=== PATIENT | male | born 1995 | race Caucasian/White ===

== ENCOUNTER 2017-11-22 02:26 | Inpatient (IN) | payer SELFPAY ==
[2017-11-22 02:45] LABS: BASO # 0.1 x10^3/uL (0.0-0.2); BASO % 0 % (0-3); EOS % 0 % (0-3); HEMATOCRIT 49.8 % (39.0-53.0); HEMOGLOBIN 17.3 g/dL (13.0-17.5); LYMPH # 1.1 x10^3/uL (1.0-4.8); LYMPH % 6 % (24-48); MEAN CORPUSCULAR HEMOGLOBIN 31 pg (25-35); MEAN CORPUSCULAR HGB CONC 35 g/dL (31-37); MEAN CORPUSCULAR VOLUME 89 fL (79-100); MONO % 17 % (0-9); NEUT % 77 % (31-73); PLATELET COUNT 196 x10^3/uL (140-400); RED BLOOD COUNT 5.59 x10^6/uL (4.30-5.70); RED CELL DISTRIBUTION WIDTH 13.9 % (11.5-14.5); WHITE BLOOD COUNT 18.2 x10^3/uL (4.0-11.0)
[2017-11-22 02:47] LABS: ADD MAN DIFF? YES
[2017-11-22] MEDS: IV NORMAL SALINE 1000ML BAG 1,000 ML IV ×6 (02:51→19:52)
[2017-11-22 02:52] LABS: ANION GAP 18 (6-14); BLOOD UREA NITROGEN 25 mg/dL (8-26); BUN/CREATININE RATIO 14 (6-20); CARBON DIOXIDE 25 mmol/L (21-32); CHLORIDE 94 mmol/L (98-107); CREATININE 1.8 mg/dL (0.7-1.3); GFR 47.4; GLUCOSE 127 mg/dL (70-99); POTASSIUM 3.5 mmol/L (3.5-5.1); SODIUM 137 mmol/L (136-145)
[2017-11-22 02:59] LABS: ALBUMIN 5.2 g/dL (3.4-5.0); ALBUMIN/GLOBULIN RATIO 1.2 (1.0-1.7); ALK PHOS 96 U/L (46-116); ALT (SGPT) 41 U/L (16-63); AST (SGOT) 76 U/L (15-37); TOTAL PROTEIN 9.4 g/dL (6.4-8.2)
[2017-11-22 03:08] LABS: SALIC 5.5 mg/dL (2.8-20.0)
[2017-11-22 03:09] LABS: ACETAMIN < 2 mcg/ml (10-30); ETHANOL < 10 mg/dL (0-10)
[2017-11-22 04:06] LABS: % ATYL 1 % (0-0); % BANDS 3 % (0-9); % LYMPHS 8 % (24-48); % MONOS 19 % (0-10); % SEGS 69 % (35-66); PLT ESTIMATE ADEQUATE (ADEQUATE); TOXIC VACUOLATION SLIGHT
[2017-11-22 05:19] LABS: AMPHETAMINE/METHAMPHETAMINE NEG (NEG); BARBITURATES NEG (NEG); BENZODIAZEPINES POS (NEG); CANNABINOIDS POS (NEG); COCAINE NEG (NEG); ETHANOL, URINE NEG (NEG); METHADONE NEG (NEG); OPIATES NEG (NEG); PHENCYCLIDINE NEG (NEG)
[2017-11-22] MEDS ORDERED: ONDANSETRON PF 4 MG/2 ML VIAL. IV (06:30)
[2017-11-22] MEDS: ZIPRASIDONE IM 20 MG VIAL. IM ×2 (07:05→23:05)
[2017-11-22] MEDS ORDERED: ZIPRASIDONE IM 20 MG VIAL. IM (07:15)
[2017-11-22 07:45] LABS: TROPONINI 0.026 ng/mL (0.000-0.055)
[2017-11-22 07:55] LABS: CREATINE KINASE 3680 U/L (39-308)
[2017-11-22 10:22] LABS: TROPONINI 0.029 ng/mL (0.000-0.055)
[2017-11-22] MEDS: PIPERACILLIN/TAZOBACTAM 3.375 GM in IV NORMAL SALINE 50ML 50 ML IV ×3 (13:01→23:52)
[2017-11-22 13:51] LABS: LACTIC ACID 0.9 mmol/L (0.4-2.0)
[2017-11-22 13:56] LABS: MYOGLOBIN 478 ng/mL (16-96)
[2017-11-22] MEDS: NICOTINE 21MG PATCH. TD (15:31)
[2017-11-22] MEDS: ENOXAPARIN 40 MG/0.4 ML SYRINGE. SQ (17:28)
[2017-11-22 23:11] LABS: PROTEIN RANDOM URINE 180.1 mg/dL (Not Estab.)
[2017-11-22 23:11] LABS: MRSA BY PCR Negative (Negative)
[2017-11-23] MEDS: IV NORMAL SALINE 1000ML BAG 1,000 ML IV ×2 (02:16→05:30)
[2017-11-23 03:47] LABS: ADD MAN DIFF? NO
[2017-11-23 03:49] LABS: BASO % 1 % (0-3); EOS # 0.2 x10^3/uL (0.0-0.7); EOS % 2 % (0-3); HEMATOCRIT 40.4 % (39.0-53.0); HEMOGLOBIN 13.6 g/dL (13.0-17.5); LYMPH # 2.5 x10^3/uL (1.0-4.8); LYMPH % 33 % (24-48); MEAN CORPUSCULAR HEMOGLOBIN 31 pg (25-35); MEAN CORPUSCULAR HGB CONC 34 g/dL (31-37); MEAN CORPUSCULAR VOLUME 91 fL (79-100); MONO # 1.5 x10^3/uL (0.0-1.1); MONO % 20 % (0-9); NEUT # 3.4 x10^3uL (1.8-7.7); NEUT % 45 % (31-73); PLATELET COUNT 115 x10^3/uL (140-400); RED BLOOD COUNT 4.45 x10^6/uL (4.30-5.70); RED CELL DISTRIBUTION WIDTH 13.9 % (11.5-14.5); WHITE BLOOD COUNT 7.6 x10^3/uL (4.0-11.0)
[2017-11-23 04:17] LABS: ALK PHOS 69 U/L (46-116); ALT (SGPT) 44 U/L (16-63); ANION GAP 9 (6-14); AST (SGOT) 98 U/L (15-37); BLOOD UREA NITROGEN 8 mg/dL (8-26); BUN/CREATININE RATIO 9 (6-20); CALCIUM 8.2 mg/dL (8.5-10.1); CARBON DIOXIDE 26 mmol/L (21-32); CHLORIDE 106 mmol/L (98-107); CREATININE 0.9 mg/dL (0.7-1.3); GFR 105.5; GLUCOSE 99 mg/dL (70-99); SODIUM 141 mmol/L (136-145); TOTAL BILIRUBIN 0.9 mg/dL (0.2-1.0); TOTAL PROTEIN 5.9 g/dL (6.4-8.2)
[2017-11-23 04:23] LABS: CREATINE KINASE 2245 U/L (39-308)
[2017-11-23] MEDS: PIPERACILLIN/TAZOBACTAM 3.375 GM in IV NORMAL SALINE 50ML 50 ML IV ×3 (05:37→17:04)
[2017-11-23] MEDS: POTASSIUM CHLORIDE 20 MEQ TABLET.ER. PO ×2 (08:30→10:30)
[2017-11-23] MEDS ORDERED: MAGNESIUM SULFATE 2GM 50 ML IV (08:45)
[2017-11-23] MEDS ORDERED: POTASSIUM CHLORIDE 20 MEQ/15 ML ORAL LIQUID. PO (11:00)
[2017-11-23] MEDS: MAGNESIUM OXIDE 400 MG TABLET PO ×2 (14:20→20:58)
[2017-11-23] MEDS: POTASSIUM & SODIUM PHOSPHATES PACKET. PO ×2 (14:20→20:59)
[2017-11-23] MEDS: POTASSIUM CHLORIDE 40 MEQ in IV NORMAL SALINE 1000ML BAG 1,000 ML IV ×2 (14:22→16:45)
[2017-11-23] MEDS: ENOXAPARIN 40 MG/0.4 ML SYRINGE. SQ (17:04)
[2017-11-24] MEDS: POTASSIUM CHLORIDE 40 MEQ in IV NORMAL SALINE 1000ML BAG 1,000 ML IV ×2 (00:04→08:35)
[2017-11-24] MEDS: PIPERACILLIN/TAZOBACTAM 3.375 GM in IV NORMAL SALINE 50ML 50 ML IV ×3 (00:05→11:37)
[2017-11-24 06:52] LABS: ADD MAN DIFF? NO
[2017-11-24 06:58] LABS: BASO # 0.1 x10^3/uL (0.0-0.2); BASO % 1 % (0-3); EOS # 0.3 x10^3/uL (0.0-0.7); EOS % 5 % (0-3); HEMATOCRIT 40.7 % (39.0-53.0); HEMOGLOBIN 13.7 g/dL (13.0-17.5); LYMPH # 2.5 x10^3/uL (1.0-4.8); LYMPH % 41 % (24-48); MEAN CORPUSCULAR HEMOGLOBIN 31 pg (25-35); MEAN CORPUSCULAR HGB CONC 34 g/dL (31-37); MEAN CORPUSCULAR VOLUME 91 fL (79-100); MONO # 1.1 x10^3/uL (0.0-1.1); MONO % 18 % (0-9); NEUT # 2.1 x10^3uL (1.8-7.7); NEUT % 35 % (31-73); PLATELET COUNT 129 x10^3/uL (140-400); RED BLOOD COUNT 4.49 x10^6/uL (4.30-5.70); WHITE BLOOD COUNT 6.1 x10^3/uL (4.0-11.0)
[2017-11-24 07:20] LABS: ALBUMIN 3.2 g/dL (3.4-5.0); ALK PHOS 55 U/L (46-116); ALT (SGPT) 50 U/L (16-63); ANION GAP 7 (6-14); AST (SGOT) 71 U/L (15-37); BLOOD UREA NITROGEN 3 mg/dL (8-26); BUN/CREATININE RATIO 4 (6-20); CALCIUM 8.3 mg/dL (8.5-10.1); CARBON DIOXIDE 28 mmol/L (21-32); CHLORIDE 106 mmol/L (98-107); CREATINE KINASE 937 U/L (39-308); CREATININE 0.7 mg/dL (0.7-1.3); GLUCOSE 90 mg/dL (70-99); POTASSIUM 3.8 mmol/L (3.5-5.1); SODIUM 141 mmol/L (136-145); TOTAL BILIRUBIN 0.4 mg/dL (0.2-1.0); TOTAL PROTEIN 6.3 g/dL (6.4-8.2)
[2017-11-24] MEDS: MAGNESIUM OXIDE 400 MG TABLET PO (08:34)
[2017-11-24] MEDS ORDERED: HYDROcodone/APAP 5/325MG 1 TAB TABLET PO (12:15)
== END 2017-11-24 14:43 | disposition home or self-care (01) | DRG 682 ==
LOC: 6 SOUTH 11-24 05:15 → ER 02:26 → 1 WEST ICU 06:22
DX: N17.9 Acute kidney failure, unspecified (principal); J96.01 Acute respiratory failure with hypoxia; M62.82 Rhabdomyolysis; F12.90 Cannabis use, unspecified, uncomplicated; E86.0 Dehydration; F17.210 Nicotine dependence, cigarettes, uncomplicated; F19.959 Other psychoactive substance use, unspecified with psychoactive substance-induced psychotic disorder, unspecified; D72.829 Elevated white blood cell count, unspecified; E87.6 Hypokalemia; Z83.3 Family history of diabetes mellitus
CPT/HCPCS: 36415; 70450; 71045; 80053; 80307; 80329; 82550; 82570; 83605; 83735; 83874; 84156; 84484; 85007; 85025; 87641; 93005; 95816; 96361; 96372; 96374; 96376; 99285; 99285-25; G0480; J1650; J2060; J2543; J3486; J7030

== ENCOUNTER 2018-11-18 15:59 | Emergency (ER) | payer SELFPAY ==
[~2018-11-18] VITALS: Ht 165.1 cm; Wt 81.6 kg
[2018-11-18] MEDS ORDERED: ONDANSETRON PF 4 MG/2 ML VIAL. IV ONE (16:15)
[2018-11-18] MEDS ORDERED: IV NORMAL SALINE 1000ML BAG 1,000 ML IV ONE ×2 (16:15→17:30)
--- NOTE | 2018-11-18 16:35 | PHYS DOC ---
Past Medical History Past Medical History: No Pertinent History Past Surgical History: No Surgical History Alcohol Use: Heavy Drug Use: Marijuana Adult General Chief Complaint Chief Complaint: ABDOMINAL PAIN HPI HPI Patient is a 22 year old male who presents with nausea and vomiting 1 day. The patient states that he has had 3 episodes of emesis today. He states that he also has a sore throat and nasal congestion. He denies fever but does have body aches. He has not had a flu shot in years. He denies diarrhea. He denies blood or mucus in his vomitus. Review of Systems Review of Systems Constitutional: See history of present illness Eyes: Denies change in visual acuity, redness, or eye pain [] HENT: See history of present illness Respiratory: Denies cough or shortness of breath [] Cardiovascular: No additional information not addressed in HPI [] GI: See history of present illness : Denies dysuria or hematuria [] Musculoskeletal: Denies back pain or joint pain [] Integument: Denies rash or skin lesions [] Neurologic: Denies headache, focal weakness or sensory changes [] Endocrine: Denies polyuria or polydipsia [] All other systems were reviewed and found to be within normal limits, except as documented in this note. Current Medications Current Medications Current Medications Medications (Trade) Dose Ordered Sig/Jass Start Time Stop Time Status Last Admin Dose Admin Ibuprofen (Motrin) 800 mg 1X ONCE 11/18/18 17:30 11/18/18 17:32 DC 11/18/18 17:45 800 MG Ondansetron HCl (Zofran) 4 mg 1X ONCE 11/18/18 16:15 11/18/18 16:16 DC 11/18/18 16:23 4 MG Sodium Chloride 1,000 ml @ 1,000 mls/hr 1X ONCE 11/18/18 17:30 11/18/18 18:29 11/18/18 17:30 1,000 MLS/HR Allergies Allergies Allergies Coded Allergies Type Severity Reaction Last Updated Verified No Known Drug Allergies 04/06/14 No Physical Exam Physical Exam Constitutional: Well developed, well nourished, no acute distress, non-toxic appearance. [] HENT: Normocephalic, atraumatic, bilateral external ears normal, and she'll erythema with no oral exudates, nose normal. [] Eyes: PERRLA, EOMI, conjunctiva normal, no discharge. [] Neck: Normal range of motion, no tenderness, supple, no stridor. [] Cardiovascular:Heart rate regular rhythm, no murmur [] Lungs & Thorax: Bilateral breath sounds clear to auscultation [] Abdomen: Bowel sounds hyperactive, soft, mild midepigastric tenderness, no masses, no pulsatile masses. [] Skin: Warm, dry, no erythema, no rash. [] Back: No tenderness, no CVA tenderness. [] Extremities: No tenderness, no cyanosis, no clubbing, ROM intact, no edema. [] Neurologic: Alert and oriented X 3, normal motor function, normal sensory function, no focal deficits noted. [] Psychologic: Affect normal, judgement normal, mood normal. [] Current Patient Data Vital Signs Vital Signs Date Time Temp Pulse Resp B/P (MAP) Pulse Ox O2 Delivery O2 Flow Rate FiO2 11/18/18 16:10 98.6 61 16 141/69 (93) 97 Room Air 98.6 Lab Values Laboratory Tests Test 11/18/18 16:20 11/18/18 16:25 White Blood Count 11.6 x10^3/uL (4.0-11.0) H Red Blood Count 5.16 x10^6/uL (4.30-5.70) Hemoglobin 15.3 g/dL (13.0-17.5) Hematocrit 47.1 % (39.0-53.0) Mean Corpuscular Volume 91 fL (79-100) Mean Corpuscular Hemoglobin 30 pg (25-35) Mean Corpuscular Hemoglobin Concent 33 g/dL (31-37) Red Cell Distribution Width 14.9 % (11.5-14.5) H Platelet Count 166 x10^3/uL (140-400) Neutrophils (%) (Auto) 80 % (31-73) H Lymphocytes (%) (Auto) 4 % (24-48) L Monocytes (%) (Auto) 16 % (0-9) H Eosinophils (%) (Auto) 1 % (0-3) Basophils (%) (Auto) 0 % (0-3) Neutrophils # (Auto) 9.2 x10^3uL (1.8-7.7) H Lymphocytes # (Auto) 0.5 x10^3/uL (1.0-4.8) L Monocytes # (Auto) 1.8 x10^3/uL (0.0-1.1) H Eosinophils # (Auto) 0.1 x10^3/uL (0.0-0.7) Basophils # (Auto) 0.0 x10^3/uL (0.0-0.2) Segmented Neutrophils % 57 % (35-66) Band Neutrophils % 22 % (0-9) H Lymphocytes % 5 % (24-48) L Atypical Lymphocytes % (Manual) 3 % (0-0) H Monocytes % 13 % (0-10) H Platelet Estimate Adequate (ADEQUATE) Large Platelets Few Polychromasia Occasional Target Cells Few Stomatocytes Mod Sodium Level 143 mmol/L (136-145) Potassium Level 4.8 mmol/L (3.5-5.1) Chloride Level 104 mmol/L (98-107) Carbon Dioxide Level 33 mmol/L (21-32) H Anion Gap 6 (6-14) Blood Urea Nitrogen 10 mg/dL (8-26) Creatinine 1.0 mg/dL (0.7-1.3) Estimated GFR (Cockcroft-Gault) 92.6 BUN/Creatinine Ratio 10 (6-20) Glucose Level 85 mg/dL (70-99) Calcium Level 8.7 mg/dL (8.5-10.1) Total Bilirubin 0.9 mg/dL (0.2-1.0) Aspartate Amino Transferase (AST) 37 U/L (15-37) Alanine Aminotransferase (ALT) 36 U/L (16-63) Alkaline Phosphatase 58 U/L (46-116) Total Protein 6.6 g/dL (6.4-8.2) Albumin 3.5 g/dL (3.4-5.0) Albumin/Globulin Ratio 1.1 (1.0-1.7) Influenza Type A Antigen Negative (NEGATIVE) Influenza Type B Antigen Negative (NEGATIVE) Laboratory Tests 11/18/18 16:20 Laboratory Tests 11/18/18 16:20 EKG EKG [] Radiology/Procedures Radiology/Procedures [] Course & Med Decision Making Course & Med Decision Making Pertinent Labs and Imaging studies reviewed. (See chart for details) []The patient states that he is feeling better with the fluids and Zofran. He has successfully passed a fluid challenge with a popsicle. The patient will be discharged home with strict return instructions. Dragon Disclaimer Dragon Disclaimer This electronic medical record was generated, in whole or in part, using a voice recognition dictation system. Departure Departure Impression: Primary Impression: Nausea & vomiting Disposition: 01 HOME, SELF-CARE Condition: STABLE Referrals: NO PCP (PCP) Patient Instructions: Nausea and Vomiting Additional Instructions: Take the Zofran to settle your stomach. Increase fluids and rest. If you're worsening with fever, increased abdominal pain or inability to hold down fluids return to the emergency department. Scripts Ondansetron (ONDANSETRON ODT) 4 Mg Tab.rapdis 1 TAB PO PRN Q6-8HRS for nausea, #16 TAB Prov: BELÉN HILL APRN 11/18/18 BELÉN HILL APRN Nov 18, 2018 16:35
[2018-11-18 16:40] LABS: BASO % 0 % (0-3); EOS # 0.1 x10^3/uL (0.0-0.7); EOS % 1 % (0-3); HEMATOCRIT 47.1 % (39.0-53.0); HEMOGLOBIN 15.3 g/dL (13.0-17.5); LYMPH # 0.5 x10^3/uL (1.0-4.8); LYMPH % 4 % (24-48); MEAN CORPUSCULAR HEMOGLOBIN 30 pg (25-35); MEAN CORPUSCULAR HGB CONC 33 g/dL (31-37); MEAN CORPUSCULAR VOLUME 91 fL (79-100); MONO # 1.8 x10^3/uL (0.0-1.1); MONO % 16 % (0-9); NEUT # 9.2 x10^3uL (1.8-7.7); NEUT % 80 % (31-73); PLATELET COUNT 166 x10^3/uL (140-400); RED BLOOD COUNT 5.16 x10^6/uL (4.30-5.70); RED CELL DISTRIBUTION WIDTH 14.9 % (11.5-14.5); WHITE BLOOD COUNT 11.6 x10^3/uL (4.0-11.0)
[2018-11-18 16:50] LABS: CALCIUM 8.7 mg/dL (8.5-10.1); GFR 92.6; POTASSIUM 4.8 mmol/L (3.5-5.1)
[2018-11-18 16:52] LABS: INFLUENZA A PATIENT NEGATIVE (NEGATIVE); INFLUENZA B PATIENT NEGATIVE (NEGATIVE)
[2018-11-18 16:56] LABS: ALBUMIN 3.5 g/dL (3.4-5.0); ALBUMIN/GLOBULIN RATIO 1.1 (1.0-1.7); TOTAL BILIRUBIN 0.9 mg/dL (0.2-1.0); TOTAL PROTEIN 6.6 g/dL (6.4-8.2)
[2018-11-18 17:15] LABS: % ATYL 3 % (0-0); % BANDS 22 % (0-9); % LYMPHS 5 % (24-48); % MONOS 13 % (0-10); % SEGS 57 % (35-66); PLT ESTIMATE ADEQUATE (ADEQUATE); STOMATOCYTES MOD; TARGET CELLS FEW
[2018-11-18 17:16] LABS: POLYCHROMASIA OCCASIONAL
[2018-11-18] MEDS ORDERED: IBUPROFEN 400 MG TABLET. PO ONE (17:30)
[2018-11-18] MEDS ORDERED: ONDA4TAB12 PO (18:08)
[2018-11-18 18:24] VITALS: BP 133/62
== END 2018-11-18 19:02 | disposition home or self-care (01) ==
LOC: ER 15:59
DX: R11.2 Nausea with vomiting, unspecified (principal); J02.9 Acute pharyngitis, unspecified; R09.81 Nasal congestion; R10.13 Epigastric pain; F10.20 Alcohol dependence, uncomplicated; Y90.9 Presence of alcohol in blood, level not specified
CPT/HCPCS: 36415; 80053; 85007; 85025; 87070; 87804; 87880; 96361; 96374; 99283; J2405; J7030